=== PATIENT | female | born 1995 | race Caucasian/White ===

== ENCOUNTER 2017-08-13 04:20 | Emergency (ER) | payer OTHER ==
[~2017-08-13] VITALS: Ht 157.5 cm; Wt 57.1 kg
[2017-08-13 04:26] VITALS: Ht 157.5 cm; Wt 57.1 kg
[2017-08-13 05:53] VITALS: BP 128/74
== END 2017-08-13 05:53 | disposition home or self-care (01) ==
LOC: ED 04:20
DX: K52.9 Noninfective gastroenteritis and colitis, unspecified (principal); J45.909 Unspecified asthma, uncomplicated; Z88.6 Allergy status to analgesic agent
CPT/HCPCS: Q0162